=== PATIENT | male | born 1950 | race Caucasian/White ===

== ENCOUNTER 2024-05-05 09:30 | Emergency (ER) | payer MEDICARE, MEDICAID ==
[~2024-05-05] VITALS: Ht 177.8 cm; Wt 75.0 kg
[2024-05-05 09:33] VITALS: O2SAT 100
[2024-05-05] MEDS: KETOROLAC 30MG/ML VIAL IV ONE (09:45)
[2024-05-05 10:03] LABS: EOSINOPHILS % 12.5 % (0.0-5.0); HEMATOCRIT. 29.6 % (42.0-52.0); HEMOGLOBIN. 9.4 g/dL (14.0-18.0); LYMPHOCYTES % 23.1 % (20.0-50.0); MEAN CORPUSCULAR HEMOGLOBIN 25.8 pg (28.0-32.0); MEAN CORPUSCULAR HGB CONC 31.9 g/dL (31.0-37.0); MEAN CORPUSCULAR VOLUME 80.9 fL (80.0-94.0); MEAN PLATELET VOLUME 7.5 fl (7.4-10.4); MONOCYTES % 8.4 % (2.0-8.0); PLATELET 376 x1000/uL (130-400); RED BLOOD CELL COUNT 3.66 mill/uL (4.7-6.1); RED CELL DISTRIBUTION WIDTH 17.3 % (11.6-14.6); WHITE BLOOD COUNT 6.4 x1000/uL (4.5-11.0)
[2024-05-05 10:12] LABS: CHLORIDE 100 mEq/L (98-107); SODIUM 132 mEq/L (136-145)
[2024-05-05 10:14] LABS: CALCIUM 9.6 mg/dL (8.7-10.4); CARBON DIOXIDE 22 mEq/L (21-32)
[2024-05-05 10:18] LABS: CREATININE 0.8 mg/dL (0.6-1.3); GLUCOSE 147 mg/dL (70-105)
[2024-05-05 10:19] LABS: UREA NITROGEN BLOOD 11 mg/dL (9-23)
[2024-05-05 10:20] LABS: TROPONIN I HIGH SENSITIVITY 23 ng/L (3.0-53)
[2024-05-05] MEDS ORDERED: TOPUD PO (11:31)
[2024-05-05 12:34] VITALS: BP 124/78; PULSE 98; RESP 16; TEMP 36.78072; O2SAT 100
== END 2024-05-05 12:51 | disposition home or self-care (01) ==
LOC: ER 09:30
DX: S46.002A Unspecified injury of muscle(s) and tendon(s) of the rotator cuff of left shoulder, initial encounter (principal); E11.9 Type 2 diabetes mellitus without complications; X58.XXXA Exposure to other specified factors, initial encounter; Y93.89 Activity, other specified; Y92.89 Other specified places as the place of occurrence of the external cause; Y99.8 Other external cause status
CPT/HCPCS: 99285; 96374; 71045; 80048; 83880; 85025; 84484; 36415; 73030; 93005; J1885